=== PATIENT | male | born 1955 | race Caucasian/White ===

== ENCOUNTER 2024-05-24 13:59 | Emergency (ER) | payer BC, SELFPAY ==
[2024-05-24] VITALS (8 sets, daily range): BP systolic 123–133; BP diastolic 66–85; PULSE 55–63; RESP 15–21; O2SAT 96–99
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
--- NOTE | 2024-05-24 14:00 | RT.EKG_ITS ---
APPROVED REPORT Exam: Resting ECG Reason for Exam: near syncope Patient Location: E HR:56 bpm ECG Measurements Heart Rate 56 AXIS CO 174 P 56 QRSd 83 QRS 42 QT 461 T 22 QTc 446 Conclusion Sinus bradycardia, rate 56 No interval abnormalities or ectopy No STEMI
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
[2024-05-24 14:23] LABS: Abs Immature Grans 0.04 10^3/uL (0.0-0.06); Absolute Basophil Count 0.05 10^3/uL (0.0-0.2); Absolute Eosinophil Count 0.06 10^3/uL (0.0-0.7); Absolute Lymphocyte Count 1.32 10^3/uL (1.2-3.4); Absolute Monocyte Count 0.34 10^3/uL (0.1-0.8); Absolute Neutrophil Count 4.15 10^3/uL (1.2-6.7); Basophils % 0.8 %; HGB 13.9 g/dL (13.5-17.5); Immature Grans % 0.7 %; Lymphocytes % 22.1 %; MCH 30.2 pg (27.0-33.0); MCHC 32.3 % (32.0-36.0); MCV 94 fL (80-95); MPV 9.3 fL (8.0-11.0); Monocytes % 5.7 %; Neutrophils % 69.7 %; Platelet Count 153 10^3/uL (130-400); RDW 12.6 % (11.8-14.1); RDW-SD 43.1 fL; WBC 5.96 10^3/uL (4.4-10.8)
[2024-05-24] MEDS: Acetaminophen 500 MG TAB 1000 MG PO (14:31)
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
[2024-05-24 14:48] LABS: ALT 43 U/L (16-63); AST 39 U/L (15-37); Albumin 3.9 g/dL (3.4-5.0); Alkaline Phosphatase 57 U/L (46-116); Anion Gap 7.4 mmol/L (3-11); BUN 29 mg/dL (7-18); Bilirubin, Total 0.61 mg/dL (0.2-1.0); CO2 28.6 mmol/L (21.0-32.0); CREATININE 1.2 mg/dL (0.70-1.30); Calcium 9.1 mg/dL (8.5-10.1); Chloride 103 mmol/L (98-107); Estimated GFR 65.87 (mL/min/1.73m2); Glucose 143 mg/dL (74-106); Magnesium 2.1 mg/dL (1.8-2.4); Sodium 139 mmol/L (136-145); Total Protein 6.9 g/dL (6.4-8.2)
== END 2024-05-24 15:15 | disposition home or self-care (01) ==
LOC: ER 15:11
PROVIDERS: Emergency Provider Emergency Medicine; PCP Internal Medicine
DX: S22.31XA Fracture of one rib, right side, initial encounter for closed fracture (principal); M25.511 Pain in right shoulder; V18.0XXA Pedal cycle driver injured in noncollision transport accident in nontraffic accident, initial encounter
CPT/HCPCS: 36415; 80053; 93005; 99284; 71046; 71100; 73030; 83735; 85025; 93010; 99283